=== PATIENT | female | born 1990 | race Caucasian/White ===

== ENCOUNTER 2016-12-28 16:53 | Emergency (ER) | payer OTHER ==
[2016-12-28 17:38] VITALS: BP 118/68
--- NOTE | 2016-12-28 18:15 | ED Physician Documentation ---
GI Bleed - HISTORIAN Historian: patient, friend - HPI Stated Complaint: Mid Epigastric Pain Chief Complaint: General Adult Additional Information: epigastric dastress after eating chineese last noct then again 0200 Onset: minutes (2 DAYS) Timing: gradual onset, better Severity: mild, moderate - Associated Symptoms Description of Stools: denies: dark stools, maroon Abdominal Pain: mild, moderate, epigastric Other Related Symptoms: nausea, vomiting, other (pt is also) - ROS CONST: recent illness SKIN/LYMPH: denies: leg swelling, rash, swollen glands, ankle swelling CVS/RESP: none. 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 pt is 11 wks prehgnant. 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), peptic ulcer, other (gerd kid stones ) Surgeries/Procedures: other (t/a rt leg pt is para 2-0-1-2 gr 4) Allergies/Adverse Reactions: Allergies Allergy/AdvReac Type Severity Reaction Status Date / Time Sulfa (Sulfonamide Allergy Mild Verified 12/28/16 17:04 Antibiotics) [Sulfa(Sulfonamide Antibiotics)] tramadol Allergy Mild Verified 12/28/16 17:04 vancomycin Allergy Verified 12/28/16 17:04 GENSING Allergy Uncoded 12/28/16 17:04 Home Medications: Ambulatory Orders Medication Instructions Recorded Flinstone Vitamins 12/28/16 Heparin Sodium [Heparin] 12/28/16 - SOCIAL HX Smoking History: less than 1 pack/day Alcohol Use: none Drug Use: none - FAMILY HX Family History: none - VITAL SIGNS Vital Signs: Vital Signs Temp Pulse Resp BP Pulse Ox 98.3 F 78 18 118/68 98 12/28/16 16:53 12/28/16 17:30 12/28/16 17:30 12/28/16 17:30 12/28/16 17:30 - REVIEWED ASSESSMENTS Nursing Assessment Reviewed: Yes Vitals Reviewed: Yes Abdominal Pain Physical Exam - Physical Exam General Appearance: mild distress EENT: eye inspection normal NECK: normal inspection, thyroid normal, supple RESPIRATORY: no resp distress, chest non-tender, breath sounds normal CVS: reg rate & rhythm, heart sounds normal ABDOMEN: soft, tenderness (epigastric and lesser urt [id number]. pain std approx 10 min after eating and recurred 0200) BACK: normal inspection SKIN: warm/dry, normal color. No: cyanosis, diaphoresis, jaundice EXTREMITIES: non-tender, normal range of motion NEURO: oriented X3, motor nml, sensation nml, mood/affect nml Vital Signs: Vital Signs Temp Pulse Resp BP Pulse Ox 98.3 F 78 18 118/68 98 12/28/16 16:53 12/28/16 17:30 12/28/16 17:30 12/28/16 17:30 12/28/16 17:30 Discharge Clincal Impression: ut preg gerd Referrals: Primary Doctor,No [Primary Care Provider] - 2 Days Home Medications: Ambulatory Orders Flinstone Vitamins 12/28/16 Heparin Sodium [Heparin] 12/28/16 Comments: f/u w/ob/gyne soon--poss us gb and re check preg Condition: Good Disposition: 01 HOME, SELF-CARE Decision to Admit: NO Decision Time: 18:02
== END 2016-12-28 17:30 | disposition home or self-care (01) ==
LOC: ED 16:53
DX: K21.9 Gastro-esophageal reflux disease without esophagitis (principal); Z33.1 Pregnant state, incidental
CPT/HCPCS: 99283

== ENCOUNTER 2017-09-12 06:28 | Emergency (ER) | payer OTHER ==
[2017-09-12] MEDS ORDERED: ONDANSETRON HCL/PF 4 MG/ 2ML VIAL IVP ONE (07:13)
[2017-09-12] MEDS ORDERED: MAGNESIUM HYDROXIDE/AL HYDROX 30 ML UDC PO ONE (07:13)
[2017-09-12] MEDS ORDERED: Lidocaine 2%Visc 15ml 20 MG/ML UDC PO ONE (07:13)
[2017-09-12] MEDS ORDERED: METOCLOPRAMIDE HCL 5 MG TABLET PO ONE (07:13)
[2017-09-12] MEDS ORDERED: HYOSCYAMINE SULFATE 0.125 MG TAB.SUBL SL ONE (07:17)
[2017-09-12] MEDS ORDERED: 0.9 % SODIUM CHLORIDE 1,000 ML IV ONE (07:27)
--- NOTE | 2017-09-12 07:27 | ED Physician Documentation ---
Abdominal Pain - HISTORIAN Historian: patient - HPI Stated Complaint: Upper abdominal pain Chief Complaint: Abdominal Pain Additonal Information: Upper abd. pain across entire upper abd. woke from sleep, constant, stabbing. Had more than once before. No help from Zantac/Ibuprofen/Pepto Bismol. No radiation to back. Bowel movements normal. N/V. No hematemesis. No coffee ground emesis. Onset: hours (2) Duration: constant, sudden-onset Timing: still present Context: denies: out of country travel, bad food, recent trauma Severity: moderate Quality: stabbing Front/Back of Body, Lg (Color): 1 - pain Associated Symptoms: nausea, vomiting, loss of appetite, other (blood on toilet paper). denies: fever, chills, coffee ground emesis, bloody emesis, diarrhea, bloody stools, grossly bloody stools, mucous, sweating, chest pain Exacerbated by: nothing Relieved by: nothing Further Comments: no - ROS CONST: no problems GI/: other (blood on toilet papaer). denies: constipation, black stools, bloody urine, bloody stools, dark urine, problems urinating CVS/RESP: none EYES/ENT: none MS/SKIN/LYMPH: none NEURO/PSYCH: none - SOCIAL HX Smoking History: cigarettes Alcohol Use: none Drug Use: none - FAMILY HX Family History: gall stones (father) - PAST HX Past History: peptic ulcer, kidney stones, GERD, other (constipation) Ischemic Bowel Risk Factors: none Other History: other (blood clot disorder) Surgeries/Procedures: other (right leg) Immunizations: referred to PCP Home Medications: Ambulatory Orders Medication Instructions Recorded NK [NK] 09/12/17 Allergies/Adverse Reactions: Allergies Allergy/AdvReac Type Severity Reaction Status Date / Time ginseng Allergy Mild Verified 09/12/17 06:46 Sulfa (Sulfonamide Allergy Mild Verified 09/12/17 06:46 Antibiotics) [Sulfa(Sulfonamide Antibiotics)] tramadol Allergy Mild Verified 09/12/17 06:46 vancomycin Allergy Verified 09/12/17 06:46 - VITAL SIGNS Vital Signs: Vital Signs Temp Pulse Resp BP Pulse Ox 98.6 F 105 H 16 120/85 98 09/12/17 06:30 09/12/17 06:30 09/12/17 06:30 09/12/17 06:30 09/12/17 06:30 - REVIEWED ASSESSMENTS Nursing Assessment Reviewed: Yes Vitals Reviewed: Yes Progress - Results/Orders Results/Orders: cbc, cmp, amylase, ua, ucg, pt/ptt/inr, ct abd/pelvis ordered - Progress Progress: pt. given 10 mg Reglan IVP, 0.25 mg hyoscyamine p.o., 1 liter NS IVPB, 2 mg Dilaudid IVP x 2, 8 mg Zofran IVP in ER. Pain improved. Critical Care Note - Critical Care Note Total Time (mins): 0 ED Results Lab/Radiology - Lab Results Lab Results: Lab Results 09/12/17 09/12/17 09/12/17 07:40 07:40 07:40 WBC 20.20 K/ul H K/ul (4.00-12.00) RBC 5.89 M/ul H M/ul (3.90-5.20) Hgb 16.9 g/dL H g/dL (12.0-16.0) Hct 51.5 % H % (34.5-46.5) MCV 87.4 fl fl (80.0-100.0) MCH 28.8 pg pg (28.0-34.0) MCHC 32.9 g/dL g/dL (30.0-36.0) RDW 13.9 % % (11.3-14.3) Plt Count 460 K/mm3 H K/mm3 (130-400) Neut % (Auto) 79.8 % H % (39.0-79.0) Lymph % (Auto) 12.8 % L % (16.0-50.0) Burke % (Auto) 4.4 % % (0.0-11.0) Eos % (Auto) 1.9 % % (0.0-6.8) Baso % (Auto) 0.5 (0.0-1.5) Neut # (Auto) 16.1 # k/uL H # k/uL (1.4-7.7) Lymph # (Auto) 2.6 # k/uL # k/uL (0.6-4.0) Burke # (Auto) 0.9 # k/uL # k/uL (0.0-0.9) Eos # (Auto) 0.4 # k/uL # k/uL (0.0-0.6) Baso # (Auto) 0.1 # k/uL # k/uL (0.0-0.5) Reactive Lymphs % 0.7 % % (0.0-5.0) Reactive Lymphs # 0.2 # k/uL # k/uL (0.0-0.8) PT 9.9 Seconds Seconds (9.4-11.6) INR 0.94 (0.9-1.2) APTT 30.1 Seconds Seconds (24.5-32.8) Sodium 144 mmol/L mmol/L (136-145) Potassium 4.5 mmol/L mmol/L (3.5-5.1) Chloride 103 mmol/L mmol/L (98-107) Carbon Dioxide 21 mmol/L L mmol/L (22-30) BUN 16 mg/dL mg/dL (7-17) Creatinine 0.80 mg/dL mg/dL (0.52-1.04) Estimated Creat Clear 164 Est GFR ( Amer) > 60 (60 - ) Est GFR (Non-Af Amer) > 60 (60 - ) Glucose 107 mg/dL H mg/dL (74-106) Calcium 10.7 mg/dL H mg/dL (8.4-10.2) Total Bilirubin 0.4 mg/dL mg/dL (0.2-1.3) AST 18 U/L U/L (15-46) ALT 27 U/L U/L (13-69) Alkaline Phosphatase 119 U/L U/L (38-126) Total Protein 10.0 g/dL H g/dL (6.3-8.2) Albumin 5.0 g/dL g/dL (3.5-5.0) - Radiology Radiology Impressions: CT abdomen/pelvis without contrast shows ventral abd. hernia with entrapped bowel, poss SBO. CT abdomen/pelvis with iv and oral contrast shows no evidence of SBO, no entrapped bowel in ventral hernia. - Orders Orders: ED Orders Category Date Time Status Place IV Lock 1T Care 09/12/17 07:[address] ABD & PELVIS W/ CON Routine Exams 09/12/17 09:[address] ABD & PELVIS W/O CON Stat Exams 09/12/17 Completed CBC/PLATELET/DIFF Routine Lab 09/12/17 07:40 Completed CMP Routine Lab 09/12/17 07:40 Completed HCG [URINE HCG] Routine Lab 09/12/17 Uncollected PT-INR Routine Lab 09/12/17 07:40 Completed PTT Routine Lab 09/12/17 07:40 Completed URINALYSIS Routine Lab 09/12/17 07:11 Ordered 0.9 % Sodium Chloride [Normal Saline] 1,000 ml Med 09/12/17 07:30 Ordered IV .Q1H HYDROmorphone HCL/PF [Dilaudid] Med 09/12/17 09:02 Discontinued 2 mg IVP NOW ONE HYDROmorphone HCL/PF [Dilaudid] Med 09/12/17 11:36 Discontinued 2 mg IVP NOW ONE Hyoscyamine Sulfate [Oscimin Sl] Med 09/12/17 07:17 Discontinued 0.25 mg SL 1T ONE Lidocaine 2%Visc 15ml [Xylocaine] Med 09/12/17 07:13 Discontinued 15 mg PO NOW ONE Magnesium Hydroxide/Al Hydrox [Maalox] Med 09/12/17 07:13 Discontinued 30 ml PO NOW ONE Metoclopramide HCl [Reglan] Med 09/12/17 07:13 Discontinued 10 mg PO NOW ONE Ondansetron HCl/Pf [Zofran 4 mg/2 ml] Med 09/12/17 07:13 Discontinued 8 mg IVP NOW ONE [facility] 09/12/17 07:28 Discontinued 1 each [facility] .STK-MED ONE Abdominal Pain Physical Exam - Physical Exam General Appearance: mild distress EENT: eye inspection normal, ENT inspection normal, pharynx normal, no signs of dehydration, NIHARIKA, no nystagmus, TM's nml NECK: normal inspection, thyroid normal, supple RESPIRATORY: no resp distress, chest non-tender, breath sounds normal CVS: reg rate & rhythm, heart sounds normal, equal pulses, no murmur, no gallop , PMI nml, no JVD ABDOMEN: soft, no organomegaly, normal bowel sounds, no abdominal bruit, no distension, tenderness (right upper quadrant and epigastric tenderness). No: hepatomegaly, mass, rebound, distended, guarding, splenomegaly BACK: normal inspection, no CVA tenderness SKIN: warm/dry, normal color EXTREMITIES: non-tender, normal range of motion, no evidence of injury, no edema NEURO: oriented X3, CN's nml as tested, motor nml, sensation nml, mood/affect nml, cognition normal Vital Signs: Vital Signs Temp Pulse Resp BP Pulse Ox 98.6 F 105 H 16 120/85 98 09/12/17 06:30 09/12/17 06:30 09/12/17 06:30 09/12/17 06:30 09/12/17 06:30 Discharge Clincal Impression: Abdominal hernia Qualifiers: Hernia type: ventral Obstruction and gangrene presence: without obstruction or gangrene Qualified Code(s): K43.9 - Ventral hernia without obstruction or gangrene Referrals: Primary Doctor,No [Primary Care Provider] - 2 Days Comments: Pt. discharged in stable condition with scripts for abdominal binder, Bentyl 10 mg #20 1 p.o. ac and hs, Reglan 10 mg #40 1 p.o. ac and hs, Percocet 10/325 1 p.o. qid prn pain #10 no refills. Condition: Stable Disposition: HOME, SELF-CARE Decision to Admit: NO Decision Time: 11:47
[2017-09-12] MEDS ORDERED: PHARMACY KEY 1 EACH EACH MC ONE (07:28)
[2017-09-12] MEDS ORDERED: 0.9 % SODIUM CHLORIDE 1,000 ML IV SCH (07:30)
[2017-09-12 07:49] LABS: BASOPHILS % 0.5 (0.0-1.5); EOSINOPHILS % 1.9 % (0.0-6.8); MEAN CORPUSCULAR HEMOGLOBIN 28.8 pg (28.0-34.0); MEAN CORPUSCULAR VOLUME 87.4 fl (80.0-100.0); MONOCYTES % 4.4 % (0.0-11.0); NEUTROPHILS # 16.1 # k/uL (1.4-7.7)
[2017-09-12 08:08] LABS: eGFR (African) > 60; eGFR (Non-African) > 60
[2017-09-12] MEDS ORDERED: HYDROmorphone HCL/PF 2 MG/ML DISP.SYRIN IVP ONE ×2 (09:02→11:36)
--- NOTE | 2017-09-12 10:48 | Diagnostic Imaging Report ---
CATALINA SARAH [facility] [address] [facility] [address] [place], [place]. [address] Report Submission Date: Sep 12, 2017 8:51:09 AM CERTIFIED REGISTERED NURSE PRACTITIONER Patient Study Name: THANIA CRANE Date: Sep 12, 2017 7:47:10 AM CERTIFIED REGISTERED NURSE PRACTITIONER Modality Type: CT\SR Gender: F Description: CT ABD & PELVIS W/O CO : 88 Institution: [facility] Physician: CATALINA SARAH CT Abdomen/pelvis without contrast History: UPPER ABD PAIN Multiple axial images of the abdomen and pelvis are submitted with reconstructions No similar comparison studies Clear lung bases. No free intraperitoneal air. No acute osseous pathology. The liver, spleen, gallbladder, adrenal glands are within normal limits. Pancreas is within normal limits. There is no hydronephrosis bilaterally, the appendix is within normal limits The stomach is distended with food. Large ventral hernia contains multiple loops of bowel and omentum, bowel loops demonstrate air-fluid levels and minimal wall thickening, there is fat stranding in the hernia sac, findings are concerning for partial small bowel obstruction versus ileus. Impression: 1. Large ventral hernia containing omentum and mildly thickened loops of bowel. Fat stranding in the lower anterior abdomen and within the hernia sac. Bowel loops are fluid-filled. Bowel loops are difficult to trace due to lack of oral contrast. Colon also fluid-filled. Findings are concerning for bowel obstruction versus ileus. Please correlate with clinical exam 2. Normal appendix. No hydronephrosis. No biliary dilatation. Electronically signed on Sep 12, 2017 8:51:09 AM CERTIFIED REGISTERED NURSE PRACTITIONER by: Jeanne VARELA
--- NOTE | 2017-09-12 12:00 | Diagnostic Imaging Report ---
CATALINA SARAH [facility] [address] [facility] [address] [address] Report Submission Date: Sep 12, 2017 11:17:02 AM BOX TOE CUTTER Patient Study Name: THANIA CRANE Date: Sep 12, 2017 10:55:47 AM BOX TOE CUTTER Modality Type: CT\SR Gender: F Description: CT ABD & PELVIS W/ CON : 88 Institution: [facility] Physician: CATALINA SARAH CT the abdomen and pelvis with contrast Clinical history: CT A/P WITH, ABDOMINAL PAIN, ABDOMINAL HERNIA, POSSIBLE OBSTRUCTION Contrast administered: 92 CC OMNIPAQUE Technique: CT of the abdomen and pelvis was performed with oral and intravenous administration of contrast. Sagittal and coronal reconstructions are performed by the technologist. Comparison is made to a prior noncontrast study performed earlier today. Findings: The lung bases are clear. The liver is mildly hypodense consistent with diffuse fatty infiltration. There is no focal abnormality in the liver or spleen. Gallbladder is normally distended. There is no pancreatic or adrenal abnormality. Kidneys demonstrate symmetric enhancement. There is no retroperitoneal mass or significant adenopathy. The appendix is visualized and is within normal limits. Ventral hernia seen in the a lower abdomen and pelvis with herniated bowel loops without obstruction. There is no free fluid in the pelvis or abdomen. Ovarian follicles are evident on the right. Left ovary is not identified with certainty. Uterus is unremarkable. Impression: 1.Ventral abdominal hernia. 2. Fatty infiltration of the liver. 3. Negative appendix. 4. No acute changes. Electronically signed on Sep 12, 2017 11:17:02 AM BOX TOE CUTTER by: Butch VARELA
[2017-09-12 12:16] VITALS: BP 120/84
[2017-09-13 08:05] LABS: APPEARANCE,URINE CLOUDY (CLEAR); COLOR,URINE AMBER (YELLOW)
[2017-09-13 08:06] LABS: OCCULT BLOOD,URINE NEGATIVE (NEGATIVE); PH URINE 5.5 (5.0 - 8.0); UROBILINOGEN URINE 0.2 Eu (0.2-1.0)
== END 2017-09-12 12:03 | disposition home or self-care (01) ==
LOC: ED 06:28
DX: K43.9 Ventral hernia without obstruction or gangrene (principal)
CPT/HCPCS: 74176; 74177; 80053; 81002; 81025; 85025; 85610; 85730; 96365; 96375; 99283; J1170; J2405; Q9967; A9270-GY; J7030; Q9966; S1016

== ENCOUNTER 2017-10-11 12:15 | Emergency (ER) | payer OTHER ==
[2017-10-11 12:45] VITALS: BP 94/57
--- NOTE | 2017-10-11 13:39 | ED Physician Documentation ---
General Adult - HISTORIAN Historian: patient - HPI Stated Complaint: rectal bleeding Chief Complaint: General Adult Onset: hours Timing: still present Severity: moderate Further Comments: yes (Pt is a 27 yo female with c/o rectal bleeding. Pt has abd hernia, which she is to have repaired in 3 days. Pt has had hx recurrent constipation. LMP 3 days ago.) - ROS CONST: no problems EYES/ENT: none CVS/RESP: none GI/: other (constipation, c/o rectal bleeding) MS/SKIN/LYMPH: none - PAST HX Past History: asthma, other (abd hernia, kidney stone with stent placement) Surgeries/Procedures: , other (ortho) Allergies/Adverse Reactions: Allergies Allergy/AdvReac Type Severity Reaction Status Date / Time ginseng Allergy Mild Verified 10/11/17 12:34 Sulfa (Sulfonamide Allergy Mild Verified 10/11/17 12:34 Antibiotics) [Sulfa(Sulfonamide Antibiotics)] tramadol Allergy Mild Verified 10/11/17 12:34 vancomycin Allergy Verified 10/11/17 12:34 Home Medications: Ambulatory Orders Medication Instructions Recorded NK [NK] 10/11/17 - SOCIAL HX Smoking History: cigarettes - FAMILY HX Family History: No - VITAL SIGNS Vital Signs: Vital Signs Temp Pulse Resp BP Pulse Ox 97.7 F 85 16 94/57 100 10/11/17 12:35 10/11/17 12:35 10/11/17 12:35 10/11/17 12:35 10/11/17 12:35 - REVIEWED ASSESSMENTS Nursing Assessment Reviewed: Yes Vitals Reviewed: Yes Progress - Progress Progress: X-ray abd: No ileus or obstruction. urine hcg - neg hemocult - neg u/a 2+ blood (menses) ED Results Lab/Radiology - Orders Orders: ED Orders Category Date Time Status ABDOMEN 1 VIEW [RAD] Stat Exams 10/11/17 Taken HEMOCCULT #1 Stat Lab 10/11/17 13:21 Ordered UA [URINALYSIS] Routine Lab 10/11/17 Ordered URINE HCG Stat Lab 10/11/17 13:17 Ordered General Adult Physical Exam - PHYSICAL EXAM GENERAL APPEARANCE: mild distress EENT: pharynx normal NECK: normal inspection, supple RESPIRATORY: no resp distress, chest non-tender, breath sounds normal CVS: reg rate & rhythm, heart sounds normal ABDOMEN: soft, no organomegaly, decreased BS, other (abd hernia) RECTAL: normal exam, normal rectal tone, heme negative stool BACK: normal inspection, no CVA tenderness SKIN: warm/dry, normal color EXTREMITIES: non-tender, normal range of motion, no evidence of injury NEURO: oriented X3, motor nml, sensation nml Discharge Clincal Impression: Abdominal pain Qualifiers: Abdominal location: unspecified location Qualified Code(s): R10.9 - Unspecified abdominal pain Abdominal hernia Qualifiers: Hernia type: unspecified Obstruction and gangrene presence: without obstruction or gangrene Recurrence: not specified as recurrent Qualified Code(s) : K46.9 - Unspecified abdominal hernia without obstruction or gangrene Referrals: Primary Doctor,No [Primary Care Provider] - 2 Days Condition: Stable Decision to Admit: NO Decision Time: 13:48
[2017-10-12 07:57] LABS: APPEARANCE,URINE CLEAR (CLEAR); COLOR,URINE YELLOW (YELLOW); OCCULT BLOOD,URINE 2+ (NEGATIVE); UROBILINOGEN URINE 0.2 Eu (0.2-1.0)
--- NOTE | 2017-10-13 07:07 | Diagnostic Imaging Report ---
LORRAINE GARCÍA [facility] [place] [facility] [address] [facility] [address] [place] [address]. [id number] Report Submission Date: Oct 11, 2017 1:40:06 PM HEAT TREATING BLUER Patient Study Name: THANIA CRANE Date: Oct 11, 2017 1:24:18 PM HEAT TREATING BLUER Modality Type: CR Gender: F Description: ABDOMEN : 88 Institution: [facility] [place] [facility] Physician: LORRAINE GARCÍA Examination: Plain film abdomen. History: ABD PAIN FOR APPROX 3 MONTHS, (Hx) Comparison exam: 15 September 2017 Findings: 2 views obtained of the abdomen. No abnormal dilation of the large or small bowel. Air and stool throughout the large bowel. No suspicious calcification projecting over the renal fossa or the lower pelvic region. Osseous structures are appropriate for age. Impression: No ileus or obstruction. No suspicious calcifications by plain film sensitivity. Electronically signed on Oct 11, 2017 1:40:06 PM HEAT TREATING BLUER by: Brody VARELA
== END 2017-10-11 13:52 ==
LOC: ED 12:15
DX: K64.9 Unspecified hemorrhoids (principal)
CPT/HCPCS: 74000; 81002; 81025; 82272; 99282; 99283